=== PATIENT | male | born 1945 | race African-American/Black ===

== ENCOUNTER 2017-02-21 02:46 | Inpatient (IN) | payer BC, MEDICARE ==
[~2017-02-21] VITALS: Ht 177.8 cm; Wt 92.5 kg
[2017-02-21] VITALS (7 sets, daily range): BP systolic 123–164; BP diastolic 60–74
[2017-02-21] MEDS ORDERED: SODIUM CHLORIDE 0.9% 1,000 ML IV ONE (03:40)
[2017-02-21] MEDS ORDERED: BACITRACIN ZINC OINT UDPKT TOP ONE (03:45)
[2017-02-21] MEDS ORDERED: TETANUS, DIPHTHERIA, PERTUSSIS VAC/PF 0.5ML (>7YR OLD) IM ONE (03:45)
[2017-02-21] MEDS ORDERED: LIDOCAINE HCL 1% 20ML VIAL (Pyxis) INJ MC ONE (03:45)
[2017-02-21 04:07] LABS: BASOPHILS % 1.3 % (0.0-2.0); HEMATOCRIT. 50.8 % (42.0-52.0); HEMOGLOBIN. 17.4 g/dL (14.0-18.0); MEAN CORPUSCULAR HEMOGLOBIN 30.7 pg (28.0-32.0); MEAN CORPUSCULAR VOLUME 89.9 fL (80.0-94.0); MEAN PLATELET VOLUME 9.3 fl (7.4-10.4); MONOCYTES % 14.7 % (2.0-8.0); PLATELET 117 x1000/uL (130-400); RED BLOOD CELL COUNT 5.65 mill/uL (4.7-6.1); RED CELL DISTRIBUTION WIDTH 15.4 % (11.6-14.6)
[2017-02-21 04:21] LABS: CARBON DIOXIDE 22 mEq/L (21-32); CHLORIDE 101 mEq/L (98-107); TROPONIN I < 0.02 ng/mL (0.00-0.04)
[2017-02-21] MEDS ORDERED: SODIUM CHLORIDE 0.9% 1,000 ML IV SCH (05:06)
[2017-02-21] MEDS ORDERED: [UNRECOGNIZED DRUG - CODE] (07:57)
[2017-02-21] MEDS ORDERED: [UNRECOGNIZED DRUG - CODE] (07:57)
[2017-02-21] MEDS ORDERED: HYDROCORTISONE (07:57)
[2017-02-21] MEDS ORDERED: [UNRECOGNIZED DRUG - CODE] (07:57)
[2017-02-21] MEDS ORDERED: NAPR-681 (07:57)
[2017-02-21] MEDS ORDERED: [UNRECOGNIZED DRUG - CODE] (07:57)
[2017-02-21] MEDS ORDERED: FISH GT (09:39)
[2017-02-21] MEDS ORDERED: UBID30CA10 PO (09:40)
[2017-02-21] MEDS ORDERED: ONDANSETRON HCL 4MG/2ML VIAL IV PRN (11:15)
[2017-02-21] MEDS ORDERED: ACETAMINOPHEN 325MG TABLET PO PRN (11:15)
[2017-02-21] MEDS: AMLODIPINE 10MG TABLET PO SCH (13:19)
[2017-02-21 15:57] LABS: CREATINE KINASE MB FRACTION 0.5 ng/mL (0.5-3.6); TROPONIN I 0.03 ng/mL (0.00-0.04)
[2017-02-21 23:42] LABS: CREATINE KINASE MB FRACTION 1.3 ng/mL (0.5-3.6); TROPONIN I 0.02 ng/mL (0.00-0.04)
[2017-02-22] VITALS: BP 140/63
[2017-02-22 04:00] VITALS: BP 137/64
[2017-02-22 06:20] LABS: CHLORIDE 104 mEq/L (98-107)
[2017-02-22 06:39] LABS: CARBON DIOXIDE 21 mEq/L (21-32); HDL CHOLESTEROL 34 mg/dL (40-59); LDL CHOLESTEROL 80 mg/dL (5-100)
[2017-02-22 06:50] LABS: HEMATOCRIT. 44.5 % (42.0-52.0); HEMOGLOBIN. 15.5 g/dL (14.0-18.0); MEAN CORPUSCULAR HEMOGLOBIN 31.6 pg (28.0-32.0); MEAN PLATELET VOLUME 9.7 fl (7.4-10.4); PLATELET 115 x1000/uL (130-400); RED BLOOD CELL COUNT 4.89 mill/uL (4.7-6.1); RED CELL DISTRIBUTION WIDTH 15.5 % (11.6-14.6)
[2017-02-22 08:00] VITALS: BP_SYST 135; BP_SYST 141; BP_SYST 145; BP_DIAS 64; BP_DIAS 69; BP_DIAS 70
[2017-02-22] MEDS: AMLODIPINE 10MG TABLET PO SCH (09:10)
[2017-02-22 12:17] VITALS: BP 135/69
[2017-02-22 14:45] LABS: PLATELET ESTIMATE DECREASED
== END 2017-02-22 13:00 | disposition home or self-care (01) | DRG 605 ==
LOC: ER 02:47 → 6WST 05:07 → ENRESERV 07:17
PROVIDERS: ADMIT Hospitalist; ATTEND Hospitalist
DX: S01.01XA Laceration without foreign body of scalp, initial encounter (principal); I10 Essential (primary) hypertension; X58.XXXA Exposure to other specified factors, initial encounter; Y93.89 Activity, other specified; Y92.89 Other specified places as the place of occurrence of the external cause; Y99.8 Other external cause status
CPT/HCPCS: 12002; 36415; 70450; 71010; 80053; 80061; 82550; 82553; 84443; 84484; 85025; 90471; 90715; 93005; 93306; 93970; 96360; 96361; 99285; J3490; J7030